=== PATIENT | female | born 1960 ===

== ENCOUNTER 2017-12-13 15:03 | Emergency (ER) | payer MEDICAID ==
[~2017-12-13] VITALS: Ht 170.2 cm; Wt 90.7 kg
[2017-12-13 15:21] VITALS: BP 142/77
[2017-12-13] MEDS ORDERED: methylPREDNISolone SOD SUCC 125 MG/2 ML VL IV ONE (16:30)
[2017-12-13] MEDS ORDERED: cefTRIAXone SOD 1,000 MG VL IM ONE (16:30)
== END 2017-12-13 17:17 | disposition home or self-care (01) ==
LOC: ER 15:03
DX: J02.9 Acute pharyngitis, unspecified (principal); J44.9 Chronic obstructive pulmonary disease, unspecified; I10 Essential (primary) hypertension; Z90.49 Acquired absence of other specified parts of digestive tract; Z98.51 Tubal ligation status
CPT/HCPCS: 71046; 93005; 96372; 96374; 99284; J0696; J2930